=== PATIENT | female | born 1995 | race American Indian/Alaskan Native ===

== ENCOUNTER 2019-01-23 21:49 | Emergency (ER) | payer OTHER ==
[2019-01-23 22:01] VITALS: BP 122/83
[2019-01-23] MEDS ORDERED: IBUPROFEN 800 MG TAB PO ONE (22:44)
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
== END 2019-01-24 01:43 | disposition home or self-care (01) ==
LOC: ED 21:49
DX: S39.012A Strain of muscle, fascia and tendon of lower back, initial encounter (principal); S40.021A Contusion of right upper arm, initial encounter; V49.9XXA Car occupant (driver) (passenger) injured in unspecified traffic accident, initial encounter; Y93.89 Activity, other specified; Y92.410 Unspecified street and highway as the place of occurrence of the external cause; Y99.8 Other external cause status
CPT/HCPCS: 36415; 72072; 84703